=== PATIENT | male | born 1990 | race Caucasian/White ===

== ENCOUNTER 2023-01-30 14:41 | Outpatient (CLI) | payer BC ==
[2023-01-30 15:53] LABS: #Eosinphils 0.1 10x3/uL (0.0-0.5); #Monocytes 0.5 10x3/uL (0.0-1.1); #Neutrophils 4.2 10x3/uL (1.5-8.4); %Basophils 0.4 % (0.0-2.0); %Eosinophils 0.8 % (0.0-6.0); %Lymphocytes 36.4 % (18.0-47.0); %Monocytes 6.8 % (0.0-10.0); %Neutrophils 55.2 % (40.0-75.0); Hemoglobin 15.5 g/dL (13.5-17.5); Mean Corpuscular HGB CONC 34.4 g/dL (32.0-36.0); Mean Corpuscular Hemoglobin 31.9 pg (27.0-33.0); Mean Corpuscular Volume 92.6 fl (81.2-95.1); Mean Platelet Volume 9.6 fl (7.4-10.4); Platelet Count 205 10x3/uL (150-450); Red Blood Cell (RBC) Count 4.86 10x6/uL (4.32-5.72); White Blood Cell (WBC) Count 7.6 10x3/uL (3.5-10.5)
== END 2023-01-30 14:42 | disposition home or self-care (01) ==
LOC: LABBT 14:41
PROVIDERS: ATTEND Surgery
DX: Z01.812 Encounter for preprocedural laboratory examination (principal); K43.9 Ventral hernia without obstruction or gangrene; K42.9 Umbilical hernia without obstruction or gangrene
CPT/HCPCS: 85025

== ENCOUNTER 2023-02-03 07:38 | Day surgery (SDC) | payer BC ==
[2023-01-30 15:26] VITALS: BMI 32.5
[2023-02-03] MEDS ORDERED: Midazolam HCl 2 mg/2 ml Vial ONE (08:11)
[2023-02-03] MEDS ORDERED: EPINEPHrine 1 MG/ML VIAL ONE (08:45)
[2023-02-03] MEDS ORDERED: Bupivacaine 0.25% HCL 30 ML VIAL ONE (08:45)
[2023-02-03] MEDS ORDERED: fentaNYL PF 100 MCG/2 ML SYRINGE ONE (08:53)
[2023-02-03] MEDS ORDERED: SUGAMMADEX SODIUM 200 MG/2 ML VIAL ONE (08:53)
[2023-02-03] MEDS ORDERED: Lidocaine 1% PF 5 ML VIAL ONE ×2 (08:53→09:06)
[2023-02-03] MEDS ORDERED: Rocuronium Bromide 10 MG/ML (10ML VIAL) ONE ×2 (08:53→09:06)
[2023-02-03] MEDS ORDERED: Dexamethasone 4 mg/ml Vial ONE (08:53)
[2023-02-03] MEDS ORDERED: PROPOFOL 40 ML ONE (08:53)
[2023-02-03] MEDS ORDERED: Ondansetron PF 4 MG/2 ML Vial ONE ×2 (08:53→09:06)
[2023-02-03] MEDS ORDERED: Sodium Chloride 0.9% 100 ML ONE (08:57)
[2023-02-03] MEDS ORDERED: CEFAZOLIN 2 GM VIAL ONE (08:57)
[2023-02-03] MEDS ORDERED: PROPOFOL 200 MG/20 ML VIAL ONE (09:06)
[2023-02-03] MEDS ORDERED: Dexamethasone 20 MG/5 ML VIAL ONE (09:06)
[2023-02-03] MEDS ORDERED: Ketorolac Tromethamine 30 MG/ML VIAL ONE (09:06)
[2023-02-03] MEDS ORDERED: hydrALAZINE 20 MG/ML VIAL ONE (09:40)
[2023-02-03] MEDS ORDERED: fentaNYL 50 mcg/mL 1 mL Vial ONE (10:37)
[2023-02-03] MEDS ORDERED: HYDROcodone/Acetaminophen 5/325 mg Tablet ONE (11:34)
== END 2023-02-03 12:07 | disposition home or self-care (01) ==
LOC: SDC 07:38
PROVIDERS: ATTEND Surgery
PROC: 0WUF47Z Supplement Abdominal Wall with Autologous Tissue Substitute, Percutaneous Endoscopic Approach (ICD-10-PCS; principal; 2023-02-03)
PROC: 0WUF0JZ Supplement Abdominal Wall with Synthetic Substitute, Open Approach (ICD-10-PCS; principal; 2023-02-03)
DX: K43.9 Ventral hernia without obstruction or gangrene (principal); K42.9 Umbilical hernia without obstruction or gangrene; D17.1 Benign lipomatous neoplasm of skin and subcutaneous tissue of trunk; F41.0 Panic disorder [episodic paroxysmal anxiety]; Z79.899 Other long term (current) drug therapy
CPT/HCPCS: C1889; J0171; J0360; J1100; J1885; J2250; J2405; J2704; J3010; J3490; S0020